=== PATIENT | female | born 1955 | race Caucasian/White ===

== ENCOUNTER → 2020-06-15 | Emergency (ER) | payer BC ==
[~2020-06-15] VITALS: Ht 165.1 cm; Wt 63.5 kg
[~2020-06-15] MED LIST: MOTRIN IB200 MG
== END | disposition home or self-care (01) ==
LOC: ER 12:31
DX: G89.11 Acute pain due to trauma (principal); M79.622 Pain in left upper arm; M25.512 Pain in left shoulder; S43.422S Sprain of left rotator cuff capsule, sequela; X58.XXXS Exposure to other specified factors, sequela